=== PATIENT | female | born 1975 | race African-American/Black ===

== ENCOUNTER 2016-04-06 13:35 | Emergency (ER) | payer BC ==
--- NOTE | 2016-04-06 15:27 | PD ---
HPI Chief Complaint Patient hit her abdomen in her kitchen counter and it was painful, denies bleeding, baby is active Date Seen: Apr 06, 2016 Travel History International Travel<30 Days: No Contact w/Intl Traveler<30Days: No Known Affected Area: No History of Present Illness HPI Patient is a 40-year-old black female 28 weeks to bumped her stomac against her kitchen counter age and she said it hurt quite badly this was about 5 AM today. Staker most today to get in for us to monitor her. sHe denies any bleeding or rupture the membranes, her heart rate tracing is reactive and no contractions, and her baby is active at this time Para: 3 : 4 History Obstetric History Obstetric History One vaginal delivery Social History Alcohol Use: No Tobacco Use: No Substance Abuse: No Physical Exam Narrative GENERAL: Well-nourished, well-developed patient. SKIN: Warm and dry. HEAD: Normocephalic and atraumatic. EYES: No scleral icterus. No injection or drainage. ENT: No nasal drainage noted. Mucous membranes pink. Airway patent. NECK: Supple, trachea midline. No JVD. CARDIOVASCULAR: Regular rate and rhythm without murmurs, gallops, or rubs. RESPIRATORY: Breath sounds equal bilaterally. No accessory muscle use. BREASTS: Bilateral exam showed no masses , no retractions, no nipple discharge. ABDOMEN/GI: Abdomen soft, non-tender, bowel sounds present, no rebound, no guarding Gravid to 28 weeks size Fundal Height: [27 cm-] GENITOURINARY: External Genitalia: intact and normal in appearance BUS glands: [-] Cervix: [-] Not checked Membranes: [intact ] Uterine Contractions: [-none] FHT's: Category: [-1] Baseline: [144-] Reactive: [yes-] Variability: mod Decels: [none-] EXTREMITIES: No cyanosis or edema. BACK: Nontender without obvious deformity. No CVA tenderness. NEUROLOGICAL: Awake and alert. Motor and sensory grossly within normal limits. Five out of 5 muscle strength in all muscle groups. Normal speech. MDM Interpretation(s) She is a 40-year-old white female at 28 weeks presents after bumping her stomach epigastric kitchen cabinets encountered day. She has pain from that but no bleeding. Baby is active. She is not fatimah. heart rate tracing is reactive. On exam there is a slightly noticeable red area right where she had her stomach but no bruising laceration or a significant injury Plan Plan to observe the patient 4 hours on the heart rate monitor according to Dr. Rivera's instruction after that she be discharged home Diagnosis Diagnosis: Primary Impression: Blunt trauma of abdominal wall Additional Impression: Abdominal pain complicating Disposition: 01 DISCHARGE HOME Condition: Stable Miky Ramirez II, MD Apr 06, 2016 15:27
== END 2016-04-06 18:19 | disposition home or self-care (01) ==
LOC: HOBED 13:35
DX: O9A.213 Injury, poisoning and certain other consequences of external causes complicating pregnancy, third trimester (principal); S39.91XA Unspecified injury of abdomen, initial encounter; Z3A.28 28 weeks gestation of pregnancy; W22.09XA Striking against other stationary object, initial encounter; Y92.000 Kitchen of unspecified non-institutional (private) residence as the place of occurrence of the external cause
CPT/HCPCS: 99284

== ENCOUNTER 2016-07-11 12:10 | Inpatient (IN) | payer BC ==
[2016-07-11] VITALS (54 sets, daily range): BP systolic 83–139; BP diastolic 45–93; PULSE 45–161; RESP 16–20; TEMP 98.4–102.8; O2SAT 96–99
[~2016-07-11] VITALS: Ht 167.6 cm; Wt 84.8 kg
[2016-07-11] MEDS ORDERED: EPIDURAL-NO SYSTEMIC NARCOTICS PRN ×2 (12:23→19:30)
[2016-07-11] MEDS ORDERED: EPIDURAL-NALOXONE HCL 0.4 MG/ML AMP IV PRN ×2 (12:23→19:30)
[2016-07-11] MEDS ORDERED: EPIDURAL-DIPHENHYDRAMINE HCL 50 MG CAP PO PRN ×2 (12:23→19:30)
[2016-07-11] MEDS ORDERED: EPIDURAL-DIPHENHYDRAMINE HCL 50 MG/ML VIAL IV PUSH PRN ×2 (12:23→19:30)
[2016-07-11] MEDS ORDERED: EPIDURAL-DO NOT ADMINISTER ANTICOAGULANTS PRN ×2 (12:23→19:30)
[2016-07-11] MEDS ORDERED: LACTATED RINGER'S 1000 ML INJ 1,000 ML IV PRN (12:35)
[2016-07-11] MEDS ORDERED: LACTATED RINGER'S 1000 ML INJ 1,000 ML IV SCH ×2 (12:35→21:50)
--- NOTE | 2016-07-11 12:35 | HHI.HP ---
HPI Chief Complaint Contraction pain Date Seen: Jul 11, 2016 Travel History International Travel<30 Days: No Contact w/Intl Traveler<30Days: No Known Affected Area: No History of Present Illness HPI Patient is a 40-year-old black female at 40 weeks 6 days presents complaining of contraction pain. Denies bleeding or rupture the membranes. Baby is active, heart rate tracing is reactive and she is fatimah. She sees Dr. Rivera for care. Para: 3 : 4 History Obstetric History Obstetric History 3 vaginal deliveries Social History Alcohol Use: No Tobacco Use: No Substance Abuse: No Allergies-Medications (Allergen,Severity, Reaction): Coded Allergies: No Known Allergies (Unverified , 07/11/16) Review of Systems General / Constitutional: No: Fever, Weight Gain, Chills, Other Eyes: No: Diploplia, Blurred Vision, Visual changes, Pain, Photophobia HENT: No: Headaches, Vertigo, Lightheadedness Cardiovascular: No: Irregular Rhythm, Chest Pain or Discomfort, Palpitations, Tachycardia, Syncope, Varicosities, Edema, Cyanosis Respiratory: No: Cough, Short of Breath, Other Gastrointestinal: No: Nausea, Vomiting, Diarrhea Genitourinary: No: Decreased Urinary Output, Oliguria Musculoskeletal: No: Limited ROM, Weakness, Cramping, Edema, Pain Skin: No Rash, No Itching, No Dryness, No Lumps, No Change in Pigmentation, No Change in Nails, No Alopecia, No Lesions Neurologic: No: Weakness, Dizziness, Syncope, Focal Abnormalities, Coordination Problem, Headache, Slurred Speech, Seizures Psychiatric: No: Depression, Suicidal Ideations, Homicidal Ideation Endocrine: No: Heat Intolerance, Cold Intolerance, Polydipsia, Polyuria, Other Physical Exam Narrative GENERAL: Well-nourished, well-developed patient. SKIN: Warm and dry. HEAD: Normocephalic and atraumatic. EYES: No scleral icterus. No injection or drainage. ENT: No nasal drainage noted. Mucous membranes pink. Airway patent. NECK: Supple, trachea midline. No JVD. CARDIOVASCULAR: Regular rate and rhythm without murmurs, gallops, or rubs. RESPIRATORY: Breath sounds equal bilaterally. No accessory muscle use. BREASTS: Bilateral exam showed no masses , no retractions, no nipple discharge. ABDOMEN/GI: Abdomen soft, non-tender, bowel sounds present, no rebound, no guarding Gravid to [40-] weeks size Fundal Height: [-40] GENITOURINARY: External Genitalia: intact and normal in appearance BUS glands: [-] Cervix: [-] Dilatation: [-4-5] Effacement: [-30] Station: [-3] Presentation: [vtx-] Membranes: [intact ] Uterine Contractions: [-reg] FHT's: Category: [1-] Baseline: [133-] Reactive: [yes-] Variability: [mod-] Decels: [-none] EXTREMITIES: No cyanosis or edema. BACK: Nontender without obvious deformity. No CVA tenderness. NEUROLOGICAL: Awake and alert. Motor and sensory grossly within normal limits. Five out of 5 muscle strength in all muscle groups. Normal speech. Assessment/Plan Assessment and Plan Patient is a 40-year-old black female at 40 weeks 6 days presents planning of contractions. She presented to the hospital and possibly was delivered in a car trying to get her in the hospital however the nurses believe she could get up to labor and delivery was brought up to OB ED. Here all in triage the patient cervix is 4-5 cm fairly thick and posterior vertex. She states she she was fingertip to centimeter yesterday in the office. The heart rate tracing is reactive and she is fatimah. Impressions of early labor at 40-41 weeks plan is to admission the hospital because she is multiparous and is quite uncomfortable even though she is not dilated that much and cervix is fairly thick I's probably not a good idea for her to go home and she may not get back to the hospital and truly deliver in the car Patient was discussed with Dr. Solomon is covering for the group today Miky Ramirez II, MD Jul 11, 2016 12:35
[2016-07-11] MEDS ORDERED: SODIUM CHLORID 0.9% 500 ML INJ 500 ML IV PRN (12:45)
[2016-07-11] MEDS ORDERED: LIDOCAINE HCL 1% 50 ML VIAL INFIL PRN (12:45)
[2016-07-11] MEDS ORDERED: CITRIC ACID-SODIUM CITRATE LIQ 30 ML UDC PO SCH (12:45)
[2016-07-11] MEDS ORDERED: LIDOCAINE HCL 1% 50 ML VIAL I-DERMAL PRN (12:45)
[2016-07-11] MEDS ORDERED: OXYTOCIN 30 UNITS-500ML PREMIX 500 ML IV ONE ×2 (12:45→17:00)
[2016-07-11] MEDS ORDERED: MINERAL OIL 10 ML VIAL TOPICAL PRN (12:45)
[2016-07-11] MEDS ORDERED: fentaNYL 2MCG-BUPIV 0.125% INJ 100 ML ONE (12:46)
[2016-07-11] MEDS ORDERED: SODIUM CHLOR 0.9% 1000 ML INJ 1,000 ML IV PRN (12:55)
[2016-07-11 13:00] LABS: AUTOMATED NEUTROPHIL # 4.6 TH/MM3 (1.8-7.7); BASOPHIL % 0.6 % (0.0-2.0); HEMATOCRIT 36.9 % (35.0-46.0); HEMO FLAGS DIFF FINAL; LYMPH % 7.9 % (9.0-44.0); LYMPHOCYTE # 0.5 TH/MM3 (1.0-4.8); MEAN CELL VOLUME 84.3 FL (80.0-100.0); MEAN CORPUSCULAR HEMOGLOBIN 27.3 PG (27.0-34.0); MEAN CORPUSCULAR HGB CONC 32.4 % (32.0-36.0); MONO % 12.3 % (0.0-8.0); NEUT % 79.2 % (16.0-70.0); PLATELET COUNT 202 TH/MM3 (150-450); RED BLOOD COUNT 4.37 MIL/MM3 (4.00-5.30); RED CELL DISTRIBUTION WIDTH 18.1 % (11.6-17.2); WHITE BLOOD COUNT 5.8 TH/MM3 (4.0-11.0)
[2016-07-11 13:09] LABS: BACTERIA, URINE RARE /hpf; BLOOD, URINE NEG (NEG); COMMENT (UR) CULT NOT INDICATED; CULTURE IF INDICATED CULT NOT INDICATED; GLUCOSE,URINE NEG (NEG); KETONE, URINE 40 mg/dL (NEG); MUCUS URINE FEW /lpf (OCC); NITRITE,URINE NEG (NEG); SQUAMOUS EPITHELIAL CELL URINE 2 /hpf (0-5); URINE COLOR YELLOW (YELLW/STRAW)
[2016-07-11] MEDS ORDERED: ePHEDrine/NS 25 MG/5 ML SYR ONE (13:18)
[2016-07-11] MEDS ORDERED: DO NOT ADMINISTER ANTICOAGULANTS PRN (14:15)
[2016-07-11] MEDS ORDERED: NO SYSTEM NARCOTICS PRN (14:15)
[2016-07-11] MEDS ORDERED: ePHEDrine/NS 25 MG/5 ML SYR IV PRN (14:15)
[2016-07-11] MEDS ORDERED: fentaNYL 2MCG-BUPIV 0.125% 100 ML EPIDURAL SCH (14:15)
[2016-07-11] MEDS ORDERED: LACTATED RINGER'S 1000 ML IV ONE (17:00)
[2016-07-11] MEDS ORDERED: oxyCODONE/ACETAMINOPHEN 5 MG/325 MG TAB PO PRN (17:00)
[2016-07-11] MEDS ORDERED: SODIUM CHLORIDE 0.9% FLUSH 10 ML FLUSH IV FLUSH PRN (17:00)
[2016-07-11] MEDS ORDERED: ONDANSETRON HCL 4 MG/2 ML VIAL IV PUSH PRN (17:00)
[2016-07-11] MEDS ORDERED: ACETAMINOPHEN 1000 MG/100 ML VIAL IV ONE ×2 (17:00→18:27)
[2016-07-11] MEDS ORDERED: ceFAZolin 2 GM PREMIX 50 ML IV SCH (17:00)
[2016-07-11] MEDS ORDERED: OXYTOCIN 10 UNIT/ML AMP ONE (17:03)
[2016-07-11] MEDS ORDERED: MEPERIDINE HCL 50 MG/ML VIAL ONE (17:33)
--- NOTE | 2016-07-11 17:59 | PD.OB.DELI ---
Procedure Note Section Procedure Performed by Adama Solomon Procedure: Primary Low Transverse Sec Indication for delivery: Nonreassuring heart tracing Informed consent obtained: For anesthesia, For procedure Confirmed correct: Patient, Procedure, Site, Time-out taken Anesthesia: Epidural Medication prior to procedure: As documented in eMAR Monitoring during procedure: Blood pressure monitoring, gambling monitor, doppler, Pulse oximetry Urinary catheter: Inserted using sterile technique, To dependent drainage Sterile preparation: Duraprep, In usual fashion Position: Supine with wedge to right side, Supine with safety belt applied Operative Features Skin Incision: Pfannenstiel Uterine Incision: Low transverse w/knife / blunt ext, Low transverse w/knife / scissors Membranes Ruptured: Previously, Appearance of fluid (meconium;thin) Presentation: Occiput posterior Delivery of : Uneventful : Female Status of infant: Viable, Umbilical cord, Nursery present, Resuscitation required Placenta delivered: Intact, Sent to pathology Medications: Antibiotics, Oxytocin Estimated blood loss: 650cc Procedure tolerated: Well Maternal Condition: Stable Baby Complications: Respiratory distress Condition: Adama Mendoza MD Jul 11, 2016 17:59
[2016-07-11] MEDS ORDERED: MORPHINE SULFATE PF 5 MG/10 ML VIAL ONE (18:06)
[2016-07-11] MEDS ORDERED: ONDANSETRON HCL 4 MG/2 ML VIAL ONE (18:06)
[2016-07-11 18:13] LABS: BLOOD GAS O2 HGB SATURATION 7 % (90-100); CORD BLOOD GAS HCO3 22 mmol/L (21-29); CORD BLOOD GAS PCO2 53 mmHG (34-78); CORD BLOOD GAS PH 7.25 (7.14-7.42); CORD BLOOD GAS PO2 9 mmHG (3.0-40.0); DRAW SITE CORD BLOOD; STAT YES
[2016-07-11] MEDS ORDERED: DEXAMETHASONE SOD PHOS 4 MG/ML VIAL IV ONE (18:36)
[2016-07-11] MEDS ORDERED: LACTATED RINGER'S 1,000 ML BAG IV ONE (18:36)
[2016-07-11] MEDS ORDERED: SODIUM CHLORIDE 0.9% FLUSH 10 ML FLUSH IV FLUSH SCH (21:00)
[2016-07-12] MEDS ORDERED: OXYTOCIN 30 UNITS-500ML PREMIX 500 ML IV PRN (03:00)
[2016-07-12] MEDS: IBUPROFEN 600 MG TAB PO PRN ×3 (06:29→19:08)
[2016-07-12] MEDS: oxyCODONE/ACETAMINOPHEN 5 MG/325 MG TAB PO PRN ×4 (06:30→20:17)
[2016-07-12 08:00] VITALS: BP 94/51; PULSE 97; RESP 18; TEMP 99
--- NOTE | 2016-07-12 08:15 | MP ---
cc: El LEWIS MD,ADAMA Cary M.D. DATE OF SURGERY: 07/11/2016 PREOPERATIVE DIAGNOSIS Term intrauterine , presents with non-reassuring heart rate tracing, tachycardia, meconium-stained amniotic fluid, advanced maternal age. PROCEDURE Primary low transverse section, delivery of viable female taken directly to the NICU. POSTOPERATIVE DIAGNOSIS Term intrauterine , presents with non-reassuring heart rate tracing, tachycardia, meconium-stained amniotic fluid, advanced maternal age. SURGEON Adama Solomon MD ANESTHESIA Epidural reinforcement. ESTIMATED BLOOD LOSS 650 ccs. DRAINS Melara to gravity. OPERATIVE FINDINGS Female was delivered with good tone and cry upon delivery. Three-vessel cord, intact placenta. Placenta cultures and umbilical cord gas were pending at the time of this dictation. NICU was present and due to concerns for meconium aspiration, was taken directly to the NICU. INDICATION FOR PROCEDURE The patient presented in active labor 4-5 cm, received an epidural, artificial rupture of membranes revealed lightly to medium stained meconium fluid. Amnioinfusion was started. The patient's heart rate tracing was concerning for elevation of baseline and developing tachycardia. The patient did not progress beyond 5 cm, was not a candidate for Pitocin augmentation. Recommendation was to proceed with operative delivery by section. The patient consented. The patient received Ancef 2 grams prophylactically. PROCEDURE The patient was taken to the operating room under reinforced epidural was prepped and draped. Sequentials were placed previously on lower extremities for VTE prophylaxis and a Melara was already inserted, draining clear urine. Excellent pain control was noted. She was prepped and draped and a time-out was conducted, agreed by all present in the room. Procedure was initiated by making elliptical incision above the pubic symphysis in a Pfannenstiel type manner, carried through the skin down through the subcutaneous layer to the fascia which was identified, cleaned and then scored in the midline and extended laterally by sharp dissection, cauterizing any active bleeding along the way. The rectus fascia was dissected from the muscle. The muscle was in the midline, peritoneum was identified and opened sharply. Bladder blade was placed over the pubic symphysis, transverse incision was made in the lower uterine segment with extension of the incision. The infant was delivered head first, no nuchal cord entanglement. The was delivered in total. The cord was doubly clamped and cut and the was taken to isolette by the nursery staff. Cord segment was obtained for cord blood gas assessment. Cord blood was then obtained for typing and the placenta was removed intact with trailing membranes. No retained tissue was noted. Of note, the placenta appeared fibrotic and highly calcified with amniotic membranes were stained with meconium. The uterus was then closed with a double layer, first layer was a running locking sutures of 0-Monocryl followed by a second imbricating suture of 0-Monocryl with good result. The pelvis was irrigated. No active bleeding was known noted. Examination of the uterus and adnexa were normal. Confirmation of hemostasis was made and the peritoneal layer was closed with a running suture of 2-0 Monocryl. Muscle belly was reapproximated in midline using interrupted mattress suture of two Monocryl and then the fascia was closed with 0 Vicryl in a simple running fashion. Subcutaneous layer was irrigated. Any active bleeding was cauterized and the space was reapproximated with a running subcuticular stitch of 2-0 Monocryl. Alma were used to reapproximate the skin edge. Dressing was applied. The final count was correct. The patient was stable. She was taken to the recovery room in stable condition. Final count was correct. The infant remained in the NICU. MD UJLIANA David/TLL /6:03 PM /7:58 AM
--- NOTE | 2016-07-12 10:51 | HHI.OB ---
Subjective Post Operative Day: 1 Remarks POD#1; Stable, doing well Objective Vitals/I&O Vital Signs Date Time Temp Pulse Resp B/P Pulse Ox O2 Delivery O2 Flow Rate FiO2 07/11/16 18:55 113 16 07/11/16 18:55 96 07/11/16 18:50 99.8 07/11/16 18:50 102.8 07/11/16 18:49 123/66 07/11/16 18:40 105 16 112/45 98 07/11/16 18:25 113 122/62 99 07/11/16 18:25 16 07/11/16 18:05 118 20 101/52 97 07/11/16 18:04 99.2 07/11/16 16:53 101.9 07/11/16 16:45 123 123/77 07/11/16 16:45 127 07/11/16 16:15 124 139/59 07/11/16 16:15 121 07/11/16 15:50 98.4 128 07/11/16 15:45 129 119/76 07/11/16 15:45 126 07/11/16 15:40 129 07/11/16 15:40 18 07/11/16 15:40 136 133/69 07/11/16 15:36 119 126/74 07/11/16 15:35 160 106/74 07/11/16 15:35 136 07/11/16 15:30 161 83/47 07/11/16 15:30 152 07/11/16 15:28 153 92/47 07/11/16 15:25 132 07/11/16 15:24 139 88/45 07/11/16 15:24 124 90/53 07/11/16 15:20 138 07/11/16 15:19 18 07/11/16 15:16 131 105/59 07/11/16 15:15 134 07/11/16 15:10 129 07/11/16 15:05 110 07/11/16 15:00 106 18 111/69 07/11/16 15:00 107 07/11/16 14:55 109 07/11/16 14:50 134 07/11/16 14:46 123 107/56 07/11/16 14:45 103 07/11/16 14:40 112 07/11/16 14:35 118 07/11/16 14:35 108 07/11/16 14:30 103 07/11/16 14:30 137 118/69 07/11/16 14:30 136 07/11/16 14:25 136 07/11/16 14:25 127 07/11/16 14:20 135 07/11/16 14:15 119 07/11/16 14:15 110 107/65 07/11/16 14:15 115 07/11/16 14:10 105 07/11/16 14:10 106 07/11/16 14:05 113 07/11/16 14:05 111 07/11/16 14:04 98.8 07/11/16 14:00 125 07/11/16 14:00 134 07/11/16 14:00 61 07/11/16 13:55 118 07/11/16 13:55 113 07/11/16 13:55 112 116/58 07/11/16 13:50 112 07/11/16 13:50 110 17 122/59 07/11/16 13:50 107 07/11/16 13:45 123 129/59 07/11/16 13:45 113 07/11/16 13:45 118 07/11/16 13:44 18 07/11/16 13:40 126 126/60 07/11/16 13:40 130 07/11/16 13:40 113 07/11/16 13:35 137 07/11/16 13:35 131 07/11/16 13:35 131 133/72 07/11/16 13:31 145 126/93 07/11/16 13:30 45 07/11/16 13:30 130 07/11/16 13:25 118 07/11/16 13:20 111 07/11/16 13:15 119 07/11/16 13:10 108 07/11/16 12:46 18 07/11/16 12:40 113 119/79 07/11/16 12:40 105 07/11/16 12:35 134 Result Diagram: 07/11/16 1235 Objective Remarks GENERAL: Well-nourished, well-developed patient. CARDIOVASCULAR: Regular rate and rhythm without murmurs, gallops, or rubs. RESPIRATORY: Breath sounds equal bilaterally. No accessory muscle use. ABDOMEN/GI: Abdomen soft, non-tender, bowel sounds present. Incision: Clean, dry and intact. Fundus: Firm, non-tender at umbilicus. GENITOURINARY: Light to moderate bleeding. EXTREMITIES: No cyanosis or edema, non-tender, without signs of DVT. Medications and IVs Current Medications Medications (Trade) Dose Ordered Sig/Sarai Route Start Time Stop Time Status Last Admin Lactated Ringer's 1,000 ml @ 150 mls/hr Q6H40M IV 07/11/16 17:00 (Lr 1000 ml Inj) 1,000 ml @ 100 mls/hr Q10H IV 07/11/16 21:50 07/12/16 17:49 07/12/16 03:43 (NS Flush) 2 ml BID IV FLUSH 07/11/16 21:00 (NS Flush) 2 ml UNSCH PRN IV FLUSH 07/11/16 17:00 (Mylicon Chew) 80 mg QID PRN PO 07/11/16 17:00 (Motrin) 600 mg Q6H PRN PO 07/11/16 17:00 07/12/16 06:29 (Percocet 5-325 Mg) 1 tab Q4H PRN PO 07/11/16 17:00 (Percocet 5-325 Mg) 2 tab Q4H PRN PO 07/11/16 17:00 07/12/16 06:30 (Georgiana-Colace) 2 tab Q12H PRN PO 07/11/16 17:00 (M-M-R Ii Inj) 0.5 ml ONCE ONCE SQ 07/12/16 16:00 07/12/16 16:01 (Boostrix Inj) 0.5 ml ONCE ONCE IM 07/12/16 16:00 07/12/16 16:01 (Zofran Inj) 4 mg Q6H PRN IV PUSH 07/11/16 17:00 Miscellaneous Information NO SYSTEMIC NARCOTICS TO BE GIVEN FO... UNSCH PRN .XX 07/11/16 12:23 07/12/16 12:22 (Narcan Inj) 0.4 mg UNSCH PRN IV 07/11/16 12:23 07/12/16 12:22 (Benadryl Inj) 25 mg Q6H PRN IV PUSH 07/11/16 12:23 07/12/16 12:22 (Benadryl) 50 mg Q6H PRN PO 07/11/16 12:23 07/12/16 12:22 Miscellaneous Information ALL NURSING DEPARTMENTS UNSCH PRN .XX 07/11/16 12:23 07/12/16 12:22 Assessment/Plan Assessment and Plan POD#1; Stable ,advance care as needed. Transfer care to Dr Rivera in the AM Discharge Planning Does not meet criteria Adama Solomon MD Jul 12, 2016 10:51
[2016-07-12] MEDS: DOCUSATE SODIUM 50 MG/SENNA 8.6 MG TAB PO PRN (11:29)
[2016-07-12 12:00] VITALS: BP 80/44; PULSE 85; RESP 16; TEMP 98.4
[2016-07-12 16:00] VITALS: BP 92/50; PULSE 90; RESP 16; TEMP 98.2
[2016-07-12] MEDS ORDERED: DIPHTH/TETANUS/ACEL PERTUSSIS (BOOSTER) 0.5 ML VIAL/PFS IM ONE (16:00)
[2016-07-12] MEDS ORDERED: MEASLES, MUMPS, RUBELLA VACCINE 0.5 ML VIAL SQ ONE (16:00)
[2016-07-12] MEDS: LACTATED RINGER'S 1000 ML IV SCH (19:40)
[2016-07-12 20:00] VITALS: BP 98/64; PULSE 109; RESP 18; TEMP 97.6; O2SAT 99
[2016-07-12] MEDS: SIMETHICONE 80 MG CHEWABLE TAB PO PRN (20:15)
[2016-07-13] MEDS: LACTATED RINGER'S 1000 ML IV SCH (01:02)
[2016-07-13] MEDS: DOCUSATE SODIUM 50 MG/SENNA 8.6 MG TAB PO PRN ×2 (01:03→16:56)
[2016-07-13] MEDS: oxyCODONE/ACETAMINOPHEN 5 MG/325 MG TAB PO PRN ×5 (01:03→18:59)
[2016-07-13] MEDS: IBUPROFEN 600 MG TAB PO PRN ×4 (01:04→23:25)
[2016-07-13 08:00] VITALS: BP 93/63; PULSE 96; RESP 16; TEMP 98.2
--- NOTE | 2016-07-13 11:50 | HHI.OB ---
Subjective Post Operative Day: 2 Objective Vitals/I&O Vital Signs Date Time Temp Pulse Resp B/P Pulse Ox O2 Delivery O2 Flow Rate FiO2 07/13/16 08:00 93/63 07/13/16 08:00 98.2 96 16 07/12/16 20:00 97.6 109 18 98/64 07/12/16 20:00 99 07/12/16 16:00 98.2 90 16 92/50 07/12/16 12:00 98.4 85 16 80/44 Result Diagram: 07/11/16 1235 Objective Remarks GENERAL: Well-nourished, well-developed patient. CARDIOVASCULAR: Regular rate and rhythm without murmurs, gallops, or rubs. RESPIRATORY: Breath sounds equal bilaterally. No accessory muscle use. ABDOMEN/GI: Abdomen soft, non-tender, bowel sounds present. Incision: adilia, Clean, dry and intact. Fundus: Firm, non-tender at umbilicus +1. GENITOURINARY: Light to moderate bleeding. EXTREMITIES: No cyanosis, +1 pitting edema to lower extremities, non-tender, without signs of DVT. Medications and IVs Current Medications Medications (Trade) Dose Ordered Sig/Sarai Route Start Time Stop Time Status Last Admin (Lr 1000 ml Inj) 1,000 ml @ 150 mls/hr Q6H40M IV 07/11/16 17:00 (NS Flush) 2 ml BID IV FLUSH 07/11/16 21:00 (NS Flush) 2 ml UNSCH PRN IV FLUSH 07/11/16 17:00 (Mylicon Chew) 80 mg QID PRN PO 07/11/16 17:00 07/12/16 20:15 (Motrin) 600 mg Q6H PRN PO 07/11/16 17:00 07/13/16 09:43 (Percocet 5-325 Mg) 1 tab Q4H PRN PO 07/11/16 17:00 (Percocet 5-325 Mg) 2 tab Q4H PRN PO 07/11/16 17:00 07/13/16 09:43 (Georgiana-Colace) 2 tab Q12H PRN PO 07/11/16 17:00 07/13/16 01:03 (Zofran Inj) 4 mg Q6H PRN IV PUSH 07/11/16 17:00 Assessment/Plan Assessment and Plan POD#2 pt doing well cbc ordered pt taking oral pain medication feeling sore, ambulating in room without difficulty passing gas routine care Discharge Planning [facility] home tomorrow Cindy Rajput Jul 13, 2016 11:50
--- NOTE | 2016-07-13 11:52 | HHI.DCPOC ---
Discharge Care Plan Diagnosis: (1) S/P primary low transverse Your Health Problems Are: delivery Report Symptoms to Your Doctor -Temperate above 100.5 degrees -Redness, of incision or excessive or foul smelling drainage -Unusual pain or calf pain -Increased vaginal bleeding -Painful or difficulty urinating -Feelings of extreme sadness or anxiety after 2 weeks Goals to Promote Your Health * To prevent worsening of your condition and complications * To maintain your health at the optimal level Directions to Meet Your Goals Take your medications as prescribed Follow your dietary instruction Follow activity as directed Ensure plenty of rest for recovery Drink fluids for hydration Keep your appointments as scheduled Take your immunizations and boosters as scheduled If your symptoms worsen call your PCP, if no PCP go to Urgent Care Center or Emergency Room Smoking is Dangerous to Your Health. Avoid second hand smoke Call the 24-hour crisis hotline for domestic abuse at Cindy Rajput Jul 13, 2016 11:52
--- NOTE | 2016-07-13 11:55 | HHI.DS ---
Admission Date Jul 11, 2016 at 12:40 Discharge Date: Jul 14, 2016 Admitting Diagnosis 40 + week labor Diagnosis: (1) S/P primary low transverse Diagnosis: Principal (2) Anemia Diagnosis: Secondary Delivery Date: Jul 11, 2016 : Primary Reason: nonreassuring heart tracing : Female Brief History Patient is a 40-year-old black female at 40 weeks 6 days presents complaining of contraction pain. Denies bleeding or rupture the membranes. Baby is active, heart rate tracing is reactive and she is fatimah. She sees Dr. Rivera for care. Hospital Course 40 + week meconium non reassuring tracing primary c section routine Pt Condition on Discharge: Good Discharge Disposition: Discharge Home Discharge Instructions Diet Instructions: As Tolerated, No Restrictions Additional Diet Instructions: Drink at least 8 - 16 oz bottles of water a day Activities You Can Perform: Shower Only-No Bath Activities to Avoid: Prolonged Standing, Strenuous Activity, Sexual Activity Additional Activity Instruc.: No driving until off pain medications Do not lift anything heavier than your baby in an carrier Follow up Referrals: PERSONAL PROPERTY ASSESSOR - 1 Week @ [facility] New Medications: Ibuprofen (Ibuprofen) 600 Mg Tab 600 MG PO Q6H PRN pain #30 Ref 1 TAB Oxycodone-Acetaminophen (Oxycodone-Acetaminophen) 5-325 mg Tab 1 TAB PO Q4H PRN moderate pain #30 TAB Cindy Rajput Jul 13, 2016 11:55
[2016-07-13] MEDS ORDERED: IBUP-232 PO (12:20)
[2016-07-13] MEDS ORDERED: OXYC1TAB63 PO (12:20)
[2016-07-13 13:21] LABS: AUTOMATED NEUTROPHIL # 5.3 TH/MM3 (1.8-7.7); BASOPHIL % 0.5 % (0.0-2.0); EOSINOPHIL # 0.1 TH/MM3 (0-0.4); EOSINOPHIL % 0.8 % (0.0-4.0); HEMATOCRIT 30.2 % (35.0-46.0); HEMO FLAGS DIFF FINAL; LYMPH % 12.5 % (9.0-44.0); LYMPHOCYTE # 0.8 TH/MM3 (1.0-4.8); MEAN CELL VOLUME 84.2 FL (80.0-100.0); MEAN CORPUSCULAR HGB CONC 33.2 % (32.0-36.0); MONO % 8.1 % (0.0-8.0); NEUT % 78.1 % (16.0-70.0); PLATELET COUNT 171 TH/MM3 (150-450); RED BLOOD COUNT 3.58 MIL/MM3 (4.00-5.30); RED CELL DISTRIBUTION WIDTH 18.1 % (11.6-17.2); WHITE BLOOD COUNT 6.8 TH/MM3 (4.0-11.0)
[2016-07-13 17:31] VITALS: BP 99/69; PULSE 94; RESP 16; TEMP 98.1
[2016-07-13 20:00] VITALS: BP 94/65; PULSE 108; RESP 20; TEMP 97.7
[2016-07-14] MEDS: oxyCODONE/ACETAMINOPHEN 5 MG/325 MG TAB PO PRN ×3 (03:50→11:35)
[2016-07-14 07:50] VITALS: BP 130/71; PULSE 111; RESP 16; TEMP 98.3
[2016-07-14] MEDS: SIMETHICONE 80 MG CHEWABLE TAB PO PRN (07:52)
[2016-07-14] MEDS: DOCUSATE SODIUM 50 MG/SENNA 8.6 MG TAB PO PRN (07:53)
[2016-07-14] MEDS: IBUPROFEN 600 MG TAB PO PRN (07:53)
--- NOTE | 2016-07-14 10:07 | HHI.OB ---
Subjective Post Operative Day: 3 Objective Vitals/I&O Vital Signs Date Time Temp Pulse Resp B/P Pulse Ox O2 Delivery O2 Flow Rate FiO2 07/14/16 07:50 98.3 111 16 130/71 07/13/16 20:00 97.7 108 20 94/65 07/13/16 17:31 98.1 94 16 07/13/16 17:31 99/69 Result Diagram: 07/13/16 1257 Objective Remarks GENERAL: Well-nourished, well-developed patient. CARDIOVASCULAR: Regular rate and rhythm without murmurs, gallops, or rubs. RESPIRATORY: Breath sounds equal bilaterally. No accessory muscle use. ABDOMEN/GI: Abdomen soft, non-tender, bowel sounds present. Incision: adilia, Clean, dry and intact. Fundus: Firm, non-tender at umbilicus GENITOURINARY: Light to moderate bleeding. EXTREMITIES: No cyanosis, edema to lower extremities, non-tender, without signs of DVT. Medications and IVs Current Medications Medications (Trade) Dose Ordered Sig/Sarai Route Start Time Stop Time Status Last Admin (Lr 1000 ml Inj) 1,000 ml @ 150 mls/hr Q6H40M IV 07/11/16 17:00 (NS Flush) 2 ml BID IV FLUSH 07/11/16 21:00 (NS Flush) 2 ml UNSCH PRN IV FLUSH 07/11/16 17:00 (Mylicon Chew) 80 mg QID PRN PO 07/11/16 17:00 07/14/16 07:52 (Motrin) 600 mg Q6H PRN PO 07/11/16 17:00 07/14/16 07:53 (Percocet 5-325 Mg) 1 tab Q4H PRN PO 07/11/16 17:00 07/13/16 23:26 (Percocet 5-325 Mg) 2 tab Q4H PRN PO 07/11/16 17:00 07/14/16 07:54 (Georgiana-Colace) 2 tab Q12H PRN PO 07/11/16 17:00 07/14/16 07:53 (Zofran Inj) 4 mg Q6H PRN IV PUSH 07/11/16 17:00 Assessment/Plan Problem List: (1) S/P primary low transverse Plan: ROUTINE (2) Anemia Plan: WILL TREAT POST Assessment and Plan POD#3 pt doing well will treat anemia with daily oral iron post incision pain well managed with oral pain medication c/o burning sensation to left groin that started during but has increased since delivery, there is no decrease in strength, we will f/u in 1 week adilia to be removed and steri strips applied ambulation encouraged routine care Discharge Planning dc home today Cindy Rajput Jul 14, 2016 10:07
--- NOTE | 2016-07-24 14:46 | PQ ---
Physician Query Response Document PATIENT: LUIZ SZYMANSKI : 1975 ADMIT DATE: 07/11/2016 12:40 PM DISCH DATE: 07/14/2016 2:56 PM RESPONDING PROVIDER #: [email or web address] QUERY TEXT: Anemia Type Anemia is documented in the Medical Record. Please specify the cause (includes suspected or probable cause) Such as: -- Due to acute blood loss -- Due to chronic blood loss -- Due to iron deficiency -- Due to postoperative blood loss -- Due to chronic disease -- Other, please specify The patient's Clinical Indicators include: Assessment/Plan Problem List: (1) S/P primary low transverse Plan: ROUTINE (2) Anemia Plan: WILL TREAT POST Assessment and Plan POD#3 pt doing well will treat anemia with daily oral iron post incision pain well managed with oral pain medication c/o burning sensation to left groin that started during but has increased since delivery, t here is no decrease in strength, we will f/u in 1 week adilia to be removed and steri strips applied ambulation encouraged routine care Discharge Planning dc home today Cindy Rajput 2016 10:07 <Electronically signed by BETSY Caruso> 07/14/16 1007 If you have any additional questions/comments and/or concerns please do not hesitate to reach out to the CDI/Coding Hotline ext. [phone] Query created by: Haily Ruiz on 07/15/2016 12:21 PM RESPONSE TEXT: Acute blood loss Electronically signed by: Jacinto Rivera MD 07/24/2016 2:43 PM
== END 2016-07-14 14:56 | disposition home or self-care (01) | DRG 766 ==
LOC: HOBED 12:10 → H2EB 12:40 → H1EA 19:18
PROVIDERS: ADMIT Obstetrics & Gynecology; ATTEND Obstetrics & Gynecology
PROC: 10D00Z1 Extraction of Products of Conception, Low, Open Approach (ICD-10-PCS; principal; 2016-07-11)
PROC: 10907ZC Drainage of Amniotic Fluid, Therapeutic from Products of Conception, Via Natural or Artificial Opening (ICD-10-PCS; 2016-07-11)
PROC: 3E0E3GC Introduction of Other Therapeutic Substance into Products of Conception, Percutaneous Approach (ICD-10-PCS; 2016-07-11)
PROC: 00HU33Z Insertion of Infusion Device into Spinal Canal, Percutaneous Approach (ICD-10-PCS; 2016-07-11)
PROC: 3E0R3CZ (ICD-10-PCS; 2016-07-11)
DX: O48.0 Post-term pregnancy (principal); O99.02 Anemia complicating childbirth; O09.523 Supervision of elderly multigravida, third trimester; O76 Abnormality in fetal heart rate and rhythm complicating labor and delivery; O77.0 Labor and delivery complicated by meconium in amniotic fluid; Z3A.40 40 weeks gestation of pregnancy; Z37.0 Single live birth
CPT/HCPCS: 81001; 82805; 85025; 86900; 86901; 87070; 88307; 90715; 99285; J0131; J0690; J1100; J2175; J2274; J2405; J2590; J7120